=== PATIENT | female | born 1935 | race Caucasian/White ===

== ENCOUNTER 2019-04-07 14:27 | Emergency (ER) | payer OTHER, MEDICARE ==
[2019-04-07 14:35] VITALS: TEMP 97.6; BMI 21.9
--- NOTE | 2019-04-07 15:25 | PDOC ---
Documentation entered by Stormy Vieira SCRIBE, acting as scribe for Reid Chong MD. Reid Chong MD: This documentation has been prepared by the Dariel griffith Brenda, SCRIBE, under my direction and personally reviewed by me in its entirety. I confirm that the documentation accurately reflects all work, treatment, procedures, and medical decision making performed by me. History of Present Illness - General Chief Complaint: Chest Pain Stated Complaint: CHEST PAIN Time Seen by Provider: 04/07/19 14:30 History Source: Patient Exam Limitations: No Limitations - History of Present Illness Initial Comments: 04/07/19 15:18 The patient is an 84 year old female, with a significant PMH of LBBB, Anxiety, Depression, HLD, HTN, Hyperthyroid and GERD who presents to the emergency department with 2 episodes of transient chest pain. Patient notes that she had a quick episode of chest pain Thursday (04/02/19), which felt like a ping and lasted only a few seconds. She had another similar episode Thursday (04/03/19) that also lasted only a few seconds before resolving. She has not had any recurrence of the chest pain since. Denies SOB. Denies N/V. Denies leg swelling. Denies recent travel/immobilization. Pt attributes the chest pain to increased life stressors. Pt currently denies any complaints. Pt was at her therapist today for her depression and mentioned this chest pain, prompting the therapist to send her to the ED. Allergies: NKA PCP: Vanna Past History - Past Medical History Allergies/Adverse Reactions: Allergies Allergy/AdvReac Type Severity Reaction Status Date / Time No Known Allergies Allergy Verified 04/07/19 14:28 Home Medications: Ambulatory Orders Brimonidine Tartrate [Alphagan P] 1 drop OP OU BID 10/28/13 Clonazepam 0.5 mg PO BID PRN tablet 10/28/13 Timolol Maleate 1 drop OP OU BID 10/28/13 Acetazolamide 250 mg PO BID tablet 08/16/14 Cholecalciferol (Vitamin D3) [Vitamin D3] 1,000 unit PO DAILY 04/07/19 Famotidine 20 mg PO DAILY 04/07/19 Anemia: Yes Asthma: No Cancer: No Cardiac Disorders: Yes (LBBB) CVA: No COPD: No CHF: No Dementia: No Diabetes: No GI Disorders: Yes (ACID REFLUX) Disorders: No HTN: Yes Hypercholesterolemia: Yes Liver Disease: No Seizures: No Thyroid Disease: No - Surgical History Abdominal Surgery: No Appendectomy: No Cardiac Surgery: No Cholecystectomy: No Lung Surgery: No Neurologic Surgery: No Orthopedic Surgery: No - Psycho Social/Smoking Cessation Hx Smoking History: Never smoked Have you smoked in the past 12 months: No Information on smoking cessation initiated: No Hx Alcohol Use: No Drug/Substance Use Hx: No Substance Use Type: Alcohol Hx Substance Use Treatment: No Review of Systems - Review of Systems Able to Perform ROS?: Yes Comments:: 04/07/19 15:19 "GENERAL/CONSTITUTIONAL: No fever or chills. No weakness. HEAD, EYES, EARS, NOSE AND THROAT: No change in vision. No ear pain or discharge. No sore throat. CARDIOVASCULAR: (+) Chest pain. No shortness of breath, no loss of consciousness RESPIRATORY: No cough, wheezing, or hemoptysis. GASTROINTESTINAL: No nausea, vomiting, diarrhea or constipation. GENITOURINARY: No dysuria, frequency, or change in urination. MUSCULOSKELETAL: No joint or muscle swelling or pain. No neck or back pain. SKIN: No rash NEUROLOGIC: No vertigo, no change in strength/sensation. ENDOCRINE: No increased thirst. No abnormal weight change. HEMATOLOGIC/LYMPHATIC: No anemia, easy bleeding, or history of blood clots. ALLERGIC/IMMUNOLOGIC: No hives or skin allergy." *Physical Exam - Vital Signs Last Vital Signs Temp Pulse Resp BP Pulse Ox 97.6 F 60 18 159/73 100 04/07/19 14:27 04/07/19 14:27 04/07/19 14:27 04/07/19 14:27 04/07/19 14:27 - Physical Exam Comments: 04/07/19 15:28 "GENERAL: Awake, alert, and fully oriented, in no acute distress. HEAD: No signs of trauma EYES: PERRLA, EOMI, sclera anicteric, conjunctiva clear ENT: Auricles normal inspection, hearing grossly normal, nares patent, oropharynx clear without exudates. Moist mucosa NECK: Nontender, no stepoffs, Normal ROM, supple, no lymphadenopathy, JVD, or masses LUNGS: Breath sounds equal, clear to auscultation bilaterally. No wheezes, and no crackles HEART: Regular rate and rhythm, normal S1 and S2, no murmurs, rubs or gallops ABDOMEN: Soft, nontender, normoactive bowel sounds. No guarding, no rebound. No masses EXTREMITIES: Normal range of motion, no edema. No clubbing or cyanosis. No cords, erythema, or tenderness NEUROLOGICAL: Cranial nerves II through XII intact. 5/5 strength and sensation in all extremities, Normal speech, normal gait, normal cerebellar function SKIN: Warm, Dry, normal turgor, no rashes or lesions noted. Heart Score/ECG Review - History History: Slightly suspicious - Electrocardiogram EKG: Normal - Age Age: >/= 65 - Risk Factors Risk Factors Heart Score: Yes Hx Hypercholesterolemia, Yes Hx Hypertension Based on the list above the patient has:: 1-2 risk factors - Troponin Troponin: </= normal limit - Score Heart Score - Total: 3 - ECG Impressions Comment:: 04/07/19 15:29 NSR, no SOM/STDs, LBBB (has been present for years, per pt), lateral TWIs ED Treatment Course - LABORATORY CBC & Chemistry Diagram: 04/07/19 15:25 04/07/19 15:25 Medical Decision Making - Medical Decision Making 04/07/19 15:29 84 F with two transient episodes of chest pain over the past week. Last episode was 4 days ago. Pt currently asymptomatic. EKG shows LBBB, which is old according to pt. - Labs, trop - CXR 04/07/19 16:26 CXR clear Labs wnl, trop negative Given last episode of chest pain was 4 days ago, single trop sufficient for ACS r/o Pt is well appearing, with normal vitals. Clinically stable for DC at this time. I discussed the physical exam findings, ancillary test results and final diagnoses with the patient. I answered all of the patient's questions. The patient was satisfied with the care received and felt comfortable with the discharge plan and treatment plan. The patient agrees to follow up with the primary care physician within 24-72 hours. Discharge - Discharge Information Problems reviewed: Yes Clinical Impression/Diagnosis: Chest pain, Anxiety, Depression Condition: Stable Disposition: HOME - Follow up/Referral Referrals: Cale Prabhakar MD [Primary Care Provider] - Fahad Baker MD [Staff Physician] - - Patient Discharge Instructions Patient Printed Discharge Instructions: DI for Atypical Chest Pain Additional Instructions: Your bloodwork today was normal. However, this does not rule out all heart disease. You MUST follow up with a installment loan collector within 1 week for further evaluation. Call Dr. Prabhakar tomorrow for a follow up appointment within 48 hours. If you experience ANY chest pain, shortness of breath, nausea, vomiting, abdominal pain, or any other concerning symptoms, return to the ER immediately. - Post Discharge Activity
[2019-04-07 15:37] LABS: BASO % 0.6 % (0-2.0); EOS % 0.9 % (0-4.5); HEMATOCRIT 38.6 % (32.4-45.2); HEMOGLOBIN 12.6 GM/dl (10.7-15.3); LYMPH % 23.9 % (8-40); MCH 30.3 pg (25.7-33.7); MCHC 32.6 g/dl (32.0-36.0); MEAN CELL VOLUME 93.1 fl (80-96); MEAN PLT VOLUME 8.6 fl (7.5-11.1); MONO % 8.4 % (3.8-10.2); NEUT % 66.2 % (42.8-82.8); PLATELET COUNT 397 K/MM3 (134-434); RBC 4.15 M/mm3 (3.60-5.2); RDW 15.6 % (11.6-15.6); WHITE BLOOD COUNT 7.5 K/mm3 (4.0-10.8)
[2019-04-07 15:45] LABS: PROTHROMBIN TIME (PATIENT) 11.2 SEC (10.2-13.0)
[2019-04-07 15:50] LABS: ALBUMIN 3.8 g/dl (3.4-5.0); BILIRUBIN,TOTAL 0.5 mg/dl (0.2-1); CALCIUM 8.9 mg/dl (8.5-10); POTASSIUM 3.7 mmol/L (3.5-5.1); TOT PROT 7.4 g/dl (6.4-8.2)
--- NOTE | 2019-04-07 15:53 | EKG ---
Test Reason : Blood Pressure : / mmHG Vent. Rate : 060 BPM Atrial Rate : 060 BPM P-R Int : 206 ms QRS Dur : 154 ms QT Int : 438 ms P-R-T Axes : 068 -58 117 degrees QTc Int : 438 ms NORMAL SINUS RHYTHM POSSIBLE LEFT ATRIAL ENLARGEMENT LEFT AXIS DEVIATION LEFT BUNDLE BRANCH BLOCK ABNORMAL ECG NO PREVIOUS ECGS AVAILABLE Confirmed by KENNETH RIVAS, JUN ([id number]) on 04/07/2019 3:52:43 PM Referred By: JOSE LUIS MARK Confirmed By:JUN COOPER MD
[2019-04-07 18:18] VITALS: BP 134/75; PULSE 57
== END 2019-04-07 16:30 | disposition home or self-care (01) ==
LOC: FER 14:27
DX: R07.89 Other chest pain (principal); I10 Essential (primary) hypertension; E78.5 Hyperlipidemia, unspecified; I44.7 Left bundle-branch block, unspecified; E05.90 Thyrotoxicosis, unspecified without thyrotoxic crisis or storm; K21.9 Gastro-esophageal reflux disease without esophagitis; F41.9 Anxiety disorder, unspecified; F32.9 Major depressive disorder, single episode, unspecified
CPT/HCPCS: 36415; 71045-TC-FY; 80053; 81003; 83880; 84484; 85025; 85610; 85730; 87086; 93005; 99285-25